=== PATIENT | male | born 1995 | race Caucasian/White ===

== ENCOUNTER 2021-03-30 16:12 | Inpatient (IN) | payer OTHER ==
[~2021-03-30] VITALS: Ht 185.4 cm; Wt 75.9 kg
[2021-03-30] VITALS (17 sets, daily range): BP systolic 117–147; BP diastolic 66–89
--- NOTE | 2021-03-30 17:01 | REP ---
INDICATION: DYSPNEA/COUGH. COMPARISON: None. TECHNIQUE: Portable FINDINGS: The technique utilized in obtaining the radiograph has magnified the cardiac silhouette and accentuated the interstitial markings. There is a moderate to large right-sided pneumothorax and a patchy right lung base opacity with costophrenic and cardiophrenic angle blunting. There is evidence of a possible mediastinal shift to the left, however, due to the opacity the right heart border is silhouetted out. The left lung is clear. The heart is not enlarged. The osseous structures are within normal limits. IMPRESSION: Right-sided pneumothorax and right lung base opacities atelectasis/pneumonia/effusion. If an effusion then hydropneumothorax. <Electronically signed by Bishop Nieves > 03/30/21 [id number]
[2021-03-30 17:15] LABS: BASO # 0.1 10^3/uL (0.0-0.2); BASO % 0.4 % (0.0-1.0); EOS % 0.2 % (0.0-3.0); HEMOGLOBIN 13.6 g/dl (13.5-17.5); LYMPH # 1.4 10^3/uL (1.5-5.0); MEAN CORPUSCULAR HEMOGLOBIN 30.4 pg (27.0-33.0); MEAN CORPUSCULAR VOLUME 89.5 fl (80.0-96.0); MONO # 0.9 10^3/uL (0.0-0.8); MONO % 6.8 % (2.0-8.0); NEUTROPHILS # 11.2 10^3/uL (1.5-8.5); NEUTROPHILS % 82.2 % (36.0-66.0); PLATELET COUNT, AUTOMATED 230 10^3/uL (150-450); RED BLOOD COUNT 4.47 10^6/uL (4.30-6.10); WHITE BLOOD COUNT 13.6 10^3/uL (4.0-10.0)
[2021-03-30] MEDS ORDERED: PERCOCET 5MG/325MG TAB PO PRN (17:30)
[2021-03-30] MEDS ORDERED: NORCO, ANEXSIA 5/325MG TABLET (HYDROcodone/ACETAMINOPHEN) PO PRN (17:30)
[2021-03-30] MEDS ORDERED: BISACODYL 10 MG SUPP PR PRN (17:30)
[2021-03-30] MEDS ORDERED: LEVALBUTEROL 1.25 MG/0.5 ML CONCENTRATE NEB NEB PRN (17:30)
[2021-03-30] MEDS ORDERED: ONDANSETRON 4MG/2ML VIAL IV PRN (17:30)
[2021-03-30] MEDS ORDERED: ACETAMINOPHEN TAB 650MG DOSE (2X325MG) PO PRN (17:30)
[2021-03-30 17:36] LABS: CK-MB VALUE MASS 3.6 NG/ML (<3.6); CPK CREATINE PHOSPHOKINASE 293 U/L (39-308); MB/CK RELATIVE INDEX 1.23 (< OR =4); TROPONIN I < 0.02 NG/ML (< 0.10)
[2021-03-30 17:43] LABS: ALBUMIN 4.1 GM/DL (3.2-5.2); ALT/SGPT 23 U/L (12-78); BILIRUBIN,DIRECT 0.2 MG/DL (0.0-0.2); BILIRUBIN,TOTAL 0.6 MG/DL (0.2-1.0); BLOOD UREA NITROGEN 13 MG/DL (7-18); CALCIUM LEVEL 9.2 MG/DL (8.5-10.1); CARBON DIOXIDE LEVEL 30 MEQ/L (21-32); CHLORIDE LEVEL 103 MEQ/L (98-107); CREATININE FOR GFR 0.87 MG/DL (0.70-1.30); GLOMERULAR FILTRATION RATE > 60.0 (>60); GLUCOSE, FASTING 97 MG/DL (70-100); NT-PRO BNP 36 PG/ML (<125); POTASSIUM SERUM 4.1 MEQ/L (3.5-5.1); SODIUM LEVEL 140 MEQ/L (136-145); TOTAL PROTEIN 6.8 GM/DL (6.4-8.2)
[2021-03-30] MEDS ORDERED: flumazeniL 0.5 MG/5 ML VIAL As Ordered ONE (17:59)
[2021-03-30] MEDS ORDERED: MIDAZOLAM INJ 2MG/2ML VIAL (J2250 PER 1MG) As Ordered ONE ×2 (17:59→18:00)
[2021-03-30] MEDS ORDERED: KCL 20MEQ IN D5/NS 1000ML 1,000 ML IV SCH (18:00)
[2021-03-30] MEDS ORDERED: LIDOCAINE 1% MDV 20ML VIAL As Ordered ONE (18:00)
--- NOTE | 2021-03-30 18:13 | HPEPDOC ---
[facility] Medical History & Physical Date of Admission Mar 30, 2021 Date of Service: Mar 30, 2021 History and Physical Chief complaint: Who presented to the ER with complaints of chest pain and syncope History of present illness: Patient is a 25-year-old male with no significant past medical history who presented to the ER after he has syncopized while at work. Patient reported that early this morning he was doing pull-ups, deadlifts, pushups and a 2 mile run and around 9 AM he began to experience right-sided chest pain. Patient reports that the pain at that point was a 5-6/10, sharp like nature. Patient reported that he is taking Tylenol with minimal relief movement did exacerbate the pain. Patient noted that by 3:30 PM his pain was 8-9/10 and patient had passed out. EMS was called and patient was brought to the ER for further evaluation. In the emergency room, patient had a chest x-ray completed which revealed evidence of a right-sided pneumothorax. Patient was admitted to the hospitalist service, and cardiothoracic surgery was called on consultation. Patient was seen and examined in the hospital bed. Patient denies any active nausea or vomiting. Currently denies any abdominal pain, constipation, diarrhea, or urinary discomfort. Denies any recent fevers or chills. Patient does report some shortness of breath with a mild nonproductive cough. Currently also pain is a 7/10. Past Medical History: No significant past medical history Past Surgical History: Removal of a cyst on his right chest wall approximately 4-5 years ago reported to be benign Varicose vein procedure in his left hip/groin Allergies: See below Medications: See below Family History: - Patient denies any significant medical problems of his mother or father. He denies any family history of autoimmune diseases Social History: - Denies the use of tobacco or illicit drugs; patient reports social use of alcohol, last use was about a week ago - Denies recent travel or sick contacts - Lives with roommate and barracks - Occupation; patient is a rn military Review of Systems: 10 point review of systems complete, all negative otherwise stated in HPI Physical exam: - Vitals: BP [141/73], HR [94], RR [18], Sat [100%RA], Temp [98.3F] - General: Lying in bed, Speaking in full sentences, AAOx3 - HEENT: NC, AT, PERRLA - CVS: RRR, +S1S2, - Murmurs / rubs / gallops - Lungs: Diminished lung sounds at right lung field faint crackles appreciated at right lung base. No wheezing appreciated - Abdomen: Soft, Non-distended, Non-tender - Extremities: No lower extremity edema, No calf tenderness - Neuro: No focal motor or sensory deficit - Skin: No visible rashes Labs: See below Imaging: CXR 03/30: Right-sided pneumothorax and right lung base opacities atelectasis/pneumoni a/effusion. If an effusion then hydropneumothorax. EKG: See below Assessment and Plan: R sided chest pain - likely 2/2 pneumothorax - Patient presented to the ER with right-sided chest pain - Currently patient is saturating well on room air - Imaging noted above with evidence of right-sided pneumothorax - Patient has been admitted to the PCU and will have cardiothoracic surgery evaluate and place chest tube - Patient will remain nothing by mouth at this point Syncope - likely 2/2 above - Is reported his pain was at the peak 8-01/21 - c/w Telemetry monitoring No significant past medical history DVT prophylaxis - Will start TEDs/Sequentials and Heparin SQ Vital Signs Vital Signs Date Time Temp Pulse Resp B/P (MAP) Pulse Ox O2 Delivery O2 Flow Rate FiO2 03/30/21 17:27 97 100 03/30/21 16:23 98.3 18 141/73 (95) Room Air Laboratory Data Labs 24H Laboratory Tests 2 03/30/21 16:51: Immature Granulocyte % (Auto) 0.4, Neutrophils (%) (Auto) 82.2H, Lymphocytes (%) (Auto) 10.0L, Monocytes (%) (Auto) 6.8, Eosinophils (%) (Auto) 0.2, Basophils (%) (Auto) 0.4, Neutrophils # (Auto) 11.2H, Lymphocytes # (Auto) 1.4L, Monocytes # (Auto) 0.9H, Eosinophils # (Auto) 0.0, Basophils # (Auto) 0.1, Nucleated Red Blood Cells % (auto) 0.0, Anion Gap 7L, Glomerular Filtration Rate > 60.0, Calcium Level 9.2, Total Bilirubin 0.6, Direct Bilirubin 0.2, Aspartate Amino Transf (AST/SGOT) 24, Alanine Aminotransferase (ALT/SGPT) 23, Alkaline Phosphatase 55, Total Creatine Kinase 293, Creatine Kinase MB 3.6, Creatine Kinase MB Relative Index 1.23, Troponin I < 0.02, QX-Pcv-C-Type Natriuretic Peptide 36, Total Protein 6.8, Albumin 4.1, Albumin/Globulin Ratio 1.5, Thyroid Stimulating Hormone (TSH) 1.080 03/30/21 17:07: CBC/BMP Laboratory Tests 03/30/21 16:51 Home Medications No Active Prescriptions or Reported Meds Allergies Coded Allergies: No Known Drug Allergies (Verified Allergy, Unknown, 03/30/21) GALA OSWALD MD Mar 30, 2021 18:13
[2021-03-30 18:17] LABS: RSV AMPLIFICATION NEGATIVE (NEGATIVE)
[2021-03-30] MEDS ORDERED: MIDAZOLAM INJ 2MG/2ML VIAL (J2250 PER 1MG) IV ONE ×3 (18:39→18:42)
[2021-03-30] MEDS ORDERED: LIDOCAINE 1% MDV 20ML VIAL SC ONE ×2 (18:42→18:44)
[2021-03-30] MEDS ORDERED: SODIUM CHLORIDE 0.9% 1000ML IV ONE ×2 (18:55→20:45)
[2021-03-30] MEDS ORDERED: NS 1,000 ML IV ONE (19:00)
[2021-03-30] MEDS: KETOROLAC 30 MG/ML 1ML VIAL IV SCH (19:44)
[2021-03-30] MEDS: LEVALBUTEROL 1.25 MG/0.5 ML CONCENTRATE NEB NEB SCH (20:17)
--- NOTE | 2021-03-30 20:46 | REPVR ---
PROCEDURE INFORMATION: Exam: CT Chest Without Contrast; Diagnostic Exam date and time: 03/30/2021 7:06 PM Age: 25 years old Clinical indication: Device placement; Chest tube; Additional info: Post chest tube TECHNIQUE: Imaging protocol: Diagnostic computed tomography of the chest without contrast. 3D rendering (Not supervised by radiologist): MIP and/or 3D reconstructed images were created by the technologist. Radiation optimization: All CT scans at this facility use at least one of these dose optimization techniques: automated exposure control; mA and/or kV adjustment per patient size (includes targeted exams where dose is matched to clinical indication); or iterative reconstruction. COMPARISON: CR PORTABLE CHEST X-RAY 03/30/2021 6:51 PM FINDINGS: Lungs: There is consolidation the right lower lobe which may be due to atelectasis associated with the effusion. Left lung is clear. Pleural spaces: There is a right hydropneumothorax. A chest tube has been placed through the anterior chest wall tip is at right lung apex. There is subcutaneous emphysema at site of chest tube insertion. Heart: Unremarkable. No cardiomegaly. No pericardial effusion. Aorta: Unremarkable. No aortic aneurysm. Lymph nodes: See "Soft tissues" finding. Bones/joints: Unremarkable. No acute fracture. Soft tissues: No obvious mediastinal or hilar lymphadenopathy although soft tissue assessment is limited on this noncontrast study. IMPRESSION: There is a right hydropneumothorax with right chest tube in place from an anterior approach tip at right lung apex. There is consolidation the right lower lobe which may be due to compressive atelectasis among other etiologies. Electronically signed by: Radha Soares On 03/30/2021 20:46:09 PM
[2021-03-30] MEDS: KCL 20MEQ IN D5/NS 1000ML 1,000 ML IV SCH (20:53)
[2021-03-30] MEDS ORDERED: HEPARIN SOD (PORCINE) 5000UNITS/ML 1ML VIAL/SYRINGE SC SCH (21:00)
[2021-03-30] MEDS: DOCUSATE SODIUM 100MG CAPSULE PO SCH (21:27)
[2021-03-31] VITALS (7 sets, daily range): BP systolic 113–138; BP diastolic 49–78
[2021-03-31] MEDS: KETOROLAC 30 MG/ML 1ML VIAL IV SCH ×4 (00:16→18:47)
[2021-03-31 00:19] LABS: HEMATOCRIT 32.7 % (42.0-52.0)
[2021-03-31] MEDS: LEVALBUTEROL 1.25 MG/0.5 ML CONCENTRATE NEB NEB SCH ×4 (02:15→19:32)
[2021-03-31] MEDS: PERCOCET 5MG/325MG TAB PO PRN ×2 (04:03→08:17)
[2021-03-31] MEDS: KCL 20MEQ IN D5/NS 1000ML 1,000 ML IV SCH (06:23)
--- NOTE | 2021-03-31 06:24 | RO ---
OPERATIVE NOTE DATE OF OPERATION: 03/30/2021 PREOPERATIVE DIAGNOSIS: Pneumothorax. POSTOPERATIVE DIAGNOSIS: Hemopneumothorax. PROCEDURE: Insertion of right anterior apical chest tube. SURGEON: TERESA OLIVO M.D. FINDINGS: Upon insertion of the chest tube and placing it to suction, the patient immediately drained 1500 ml of blood. It eventually slowed. A chest x-ray taken immediately after showed the chest tube to be in good place in a more lateral position and not within the mediastinum. CT scan was then obtained immediately which showed a thin crescent of retained blood at the costophrenic angle. DESCRIPTION OF PROCEDURE: Under satisfactory moderate sedation achieved with 6 mg of Versed, the patient was prepped and draped in the usual sterile fashion. The first intercostal space above the second rib was infiltrated with 1% Lidocaine including the skin, subcutaneous tissue, muscle and pleura. An incision was made and the tunnel was created in the chest without difficulty. A #20 chest tube was then placed without difficulty and aimed towards to the apex. The chest tube was secured to the chest wall with #2 Tevdek suture. It was then connected to the Pleur-Evac with a sudden egress of 1500 ml of blood. The patient was never hypotensive during the procedure The chest tube was milked and the drainage eventually stopped. The patient tolerated the procedure well and was immediately taken to the CT scan.
--- NOTE | 2021-03-31 06:51 | CR ---
CONSULTATION DATE: 03/30/2021 REASON FOR CONSULTATION: Patient is seen at the request of the Emergency Room for syncope and a pneumothorax. HISTORY OF PRESENT ILLNESS: The patient is a 25-year-old white male who is in the and who started his morning in his usual fashion. He took a physical training exam running 2 miles in the required time. Shortly thereafter he developed a sharp pain in his right upper chest. He sought medical attention at the post clinic who thought that he maybe had a "muscle strain" and discharged him. No chest x-ray was taken. He then reappeared about 4 hours later in the same clinic, this time complaining of shortness of breath with continued chest pain. In and around the same time in that visit he started to faint, have tunnel vision and blackout but did not actually hit the floor. At that point in time, it finally occurred to the post medical personnel to transfer him to this hospital. Again, a chest x-ray was not taken, however on a chest x-ray here he had a large right sided pneumothorax. About two weeks ago he states he had an upper respiratory tract infection which was accompanied by a cough and some white sputum production. He felt hot but there were no actual fever, chills or sweats and certainly no rigor. Until today, he managed to maintain his oral intake. He was a bit nauseous about two weeks ago during his URI. He has had no dysphagia and until today no shortness of breath. Upon taking history, he states that he is short of breath as he speaks to me. His chest pain is sharp and pleuritic in nature which is exacerbated by taking a deep breath at the peak of inspiration. It is confined to his right upper chest and back. PAST MEDICAL HISTORY: None. MEDICATIONS: None. ALLERGIES: None. PAST SURGICAL HISTORY: Either a varicocele or some type of varicose vein in his left groin about four years ago, cyst removal on his anterior chest over the sternum which has resulted in a very large keloid. EXPOSURES: No dogs, birds, or cats at home. [place]. 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 No asbestos exposure that he knows of. No exposures to tuberculosis. HABITS: Does not smoke and has never smoked. Drinks occasionally. No illicit drugs. TRAVEL HISTORY: He has been deployed to [place] and to [place]. He spent basic training in [place] but has not been to the [facility]. FAMILY HISTORY: No history of pectus excavatum in his family. REVIEW OF SYSTEMS: CONSTITUTIONAL: See HPI without fever, chills, sweats or night sweats, without weight loss. EYES: Without diplopia, amaurosis fugax or prior jaundice. NOSE: Without epistaxis. MOUTH: He has his own teeth. PULMONARY: See HPI. CARDIAC: He sometimes has palpitations but no history of myocardial infarctions or intermittent claudication or peripheral edema. No orthopnea or paroxysmal nocturnal dyspnea. GI: Without nausea, vomiting diarrhea, constipation, melena, hematochezia or hematemesis. No abdominal pain. : Without dysuria or hematuria, or history of renal stones. ENDOCRINE: Without diabetes, without thyroid disease. NEUROLOGIC: Without paresthesias or paralysis, gait changes or seizures. PSYCHIATRIC: Without pathological anxiety, depression, or psychoses. PHYSICAL EXAMINATION: VITAL SIGNS: Temperature is 98.3, heart rate is 94 and is sinus rhythm, respiratory rate of 18 without the use of accessory muscles, is 100% saturated on room air. His blood pressure is 141/73. HEENT: Head is normocephalic. Eyes: Pupils equal, round and reactive to light. Extraocular motions intact. Sclera nonicteric. Nose without deformity. Mouth shows the mucous membranes to be pink and moist. Lips and commissures without lesions, there is no thrush. He does not have a high hard palate. NECK: Supple. There is no jugular venous distention. No subcutaneous emphysema. Trachea is midline. There is no lymphadenopathy. He has 2+ carotid upstrokes and no bruits. There is no thyromegaly. LUNGS: Hyperresonant percussion note in the upper right chest. He has markedly decreased breath sounds on the right side. The left side shows normal vesicular sounds without wheezes, rhonchi or rales. CARDIAC: Without murmurs, clicks, gallops or rubs. I cannot feel his PMI. S1 and S2 are normal. He has a minimal pectus excavatum. ABDOMEN: Soft, nontender, bowel sounds are positive. There is no hepatomegaly. No CVA tenderness. EXTREMITIES: No pretibial edema. No calf tenderness. No differential swelling of the upper extremities. SKIN: Warm, dry and perfused without cyanosis or mottling including that of nailbeds and knees. LYMPHATICS: Lymphatics do not show any palpable cervical, subclavicular, supraclavicular or axillary lymphadenopathy. There is no epitrochlear lymphadenopathy. PULSES: Pulses shows 2+ dorsalis pedis pulses, 2+ carotid pulses and radial pulses. NEUROLOGIC: Cranial nerves II-XII are intact. Gross motor and gross sensation intact. Gait is not tested. PSYCHIATRIC: He is awake, alert and oriented x3 with appropriate mood and affect and conversational. LABORATORY DATA: His white count is 13.6 with a hemoglobin and hematocrit of 13.6 and 40% respectively. Platelet count is 230,000 and differential shows 82% neutrophils, 10% lymphocytes, and 6% monocytes. There are no immature forms or toxic granulations. Electrolytes are normal with a BUN and creatinine of 13 and 0.87, glucose of 97 and a calcium of 9.2 with a corresponding albumin of 4.1. TSH was 1.08 and within normal limits. AST and ALT are normal at 24 and 23 respectively. He is COVID negative. His chest x-ray done portably in the Emergency Room shows a 50 to 75% pneumothorax by volume with compression of vessels in the lower hemithorax and an obscured diaphragm with a meniscus laterally at the costophrenic angle. IMPRESSION: 1. Spontaneous pneumothorax. 2. Possible meniscus at the costophrenic angle. PLAN/DISCUSSION: He will be admitted and I will place a chest tube in the PCU. Will monitor him for an air leak. This is his first episode and therefore, if his air leak stops and his lung comes back to the chest wall he will not need surgical intervention at this point in time. I have told him that should this happen again or should he have a continuous air leak on this admission he would need a talc pleurodesis and a wedge resection of the upper lobe most likely. COLLINS
[2021-03-31 07:00] LABS: BASO % 0.3 % (0.0-1.0); EOS # 0.1 10^3/uL (0.0-0.5); HEMOGLOBIN 10.4 g/dl (13.5-17.5); LYMPH # 1.9 10^3/uL (1.5-5.0); LYMPH % 28.1 % (24.0-44.0); MEAN CORPUSCULAR HEMOGLOBIN 29.7 pg (27.0-33.0); MEAN CORPUSCULAR HGB CONC 32.5 g/dl (32.0-36.5); MEAN CORPUSCULAR VOLUME 91.4 fl (80.0-96.0); MONO # 0.7 10^3/uL (0.0-0.8); MONO % 10.3 % (2.0-8.0); NEUTROPHILS # 4.1 10^3/uL (1.5-8.5); NEUTROPHILS % 60.2 % (36.0-66.0); PLATELET COUNT, AUTOMATED 171 10^3/uL (150-450); WHITE BLOOD COUNT 6.8 10^3/uL (4.0-10.0)
[2021-03-31 07:28] LABS: BLOOD UREA NITROGEN 11 MG/DL (7-18); CALCIUM LEVEL 8.2 MG/DL (8.5-10.1); CARBON DIOXIDE LEVEL 30 MEQ/L (21-32); CHLORIDE LEVEL 106 MEQ/L (98-107); CREATININE FOR GFR 0.81 MG/DL (0.70-1.30); GLOMERULAR FILTRATION RATE > 60.0 (>60); GLUCOSE, FASTING 98 MG/DL (70-100); MAGNESIUM LEVEL 2.2 MG/DL (1.8-2.4); POTASSIUM SERUM 4.3 MEQ/L (3.5-5.1); SODIUM LEVEL 140 MEQ/L (136-145)
--- NOTE | 2021-03-31 09:02 | REP ---
INDICATION: after chest tube placed COMPARISON: 03/30/2021 at 6:53 p.m. TECHNIQUE: PA and lateral. FINDINGS: Stable chest tube extends to the right apex and no obvious residual pneumothorax is identified. Right lower lobe opacity and small amount of pleural fluid are considerably improved as compared with prior examination. No new acute process appreciated. IMPRESSION: 1. No obvious right pneumothorax. 2. Right lower lobe airspace disease and small pleural fluid improved from prior examination. 3. No new acute process. <Electronically signed by Tyrell Gutierrez > 03/31/21 [id number]
[2021-03-31] MEDS ORDERED: NS 1,000 ML IV ONE (09:25)
[2021-03-31 09:26] LABS: HEMATOCRIT 32.1 % (42.0-52.0); HEMOGLOBIN 10.7 g/dl (13.5-17.5)
[2021-03-31 09:57] LABS: CK-MB VALUE MASS 5.9 NG/ML (<3.6); CPK CREATINE PHOSPHOKINASE 289 U/L (39-308); MB/CK RELATIVE INDEX 2.04 (< OR =4); TROPONIN I < 0.02 NG/ML (< 0.10)
[2021-03-31] MEDS: DOCUSATE SODIUM 100MG CAPSULE PO SCH ×2 (10:19→21:17)
[2021-03-31] MEDS: PANTOPRAZOLE 40MG TAB (PROTONIX) PO SCH (10:19)
[2021-03-31] MEDS: MOM 30ML SUSPENSION UDC PO SCH (10:20)
--- NOTE | 2021-03-31 10:31 | IPNPDOC ---
Text Note Date of Service The patient was seen on 03/31/21. NOTE Subjective: Patient is a 25-year-old male with no significant PMHx who presented to the ER after he has passed out while at work. To emergency room, patient was noted to have a large right-sided pneumothorax. He was admitted to hospital service for further evaluation and treatment. Cardiac thoracic surgery was called on consultation and a chest tube was placed. Of note, there was a significant amount of blood was draining through the chest tube. Patient was seen and examined at the bedside. Patient reported that his breathing was doing better reported some discomfort around the incision site. Denied any nausea, vomiting, abdominal pain, diarrhea, or urinary discomfort. Later this morning, patient had a chest x-ray completed and was ambulating, not more than 60 feet before he began to experience lightheadedness, dizziness, sweating and had passed out. Patient was caught by nursing staff and brought back up to the floor. Objective: Vitals (See below) General: Lying in bed, appeared comfortable, AAOx3 HEENT: NC, AT CVS: +S1S2 Lungs: Improved aeration bilaterally without any significant crackles, wheezing or rhonchi Abdomen: Soft, ND, NT Extremities: - Edema, - Calf tenderness Imaging: CXR 03/30: Right-sided pneumothorax and right lung base opacities atelectasis/pn eumonia/effusion. If an effusion then hydropneumothorax. CXR 03/30: There is a right hydropneumothorax with right chest tube in place from an anterior approach tip at right lung apex. There is consolidation the right lower lobe which may be due to compressive atelectasis among other etiologies. CXR 03/31: 1. No obvious right pneumothorax. 2. Right lower lobe airspace disease and small pleural fluid improved from prior examination. 3. No new acute process. Assessment and plan: R sided chest pain - likely 2/2 pneumothorax - Patient presented to the ER with right-sided chest pain - This morning, patient denied any significant chest pain or shortness of breath - Imaging noted above - s/p Chest tube placement on 03/[address] Abbott - c/w pain control Syncope - likely 2/2 orthostatic hypotension - likely 2/2 volume loss - Upon ambulation later this morning patient had passed out - Was noted to be significantly tachycardic upon ambulation - c/w Telemetry monitoring - c/w IV fluid hydration - Anticipate the patient will likely need to be transfused on repeat H&H Normocytic anemia / Acute blood loss anemia - Hg has trended down since admission - Will follow H&H trend - Patient has consented for blood / Type and Screen - Will transfuse if symptoms persist s/p Leukocytosis - likely 2/2 reactive etiology - No evidence of infection at this point - Will hold off antibiotics DVT prophylaxis - Discontinued Heparin - c/w TEDs/Sequentials VS,Fishbone, I+O VS, Fishbone, I+O Laboratory Tests 03/30/21 16:51 03/31/21 00:04 03/31/21 06:30 03/31/21 09:11 Vital Signs Date Time Temp Pulse Resp B/P (MAP) Pulse Ox O2 Delivery O2 Flow Rate FiO2 03/31/21 08:17 18 Room Air 03/31/21 08:00 98.2 100 138/78 (98) 100 03/31/21 00:00 2.0 I&O- Last 24 Hours up to 6 AM 03/31/21 06:00 Intake Total 1475 ml Output Total 2350 ml Balance -875 ml GALA OSWALD MD Mar 31, 2021 10:31
--- NOTE | 2021-03-31 11:46 | IPN ---
PROGRESS NOTE DATE: 03/31/2021 SUBJECTIVE: Mr. Lauren has had a stable 15 hours since placing his chest tube with 1500 ml of blood eluding from it. His H and H have been stable overnight. He was taken down to x-ray today and had a fainting spell. His vital signs shows a T-max of 98.6 with a heart rate that ranges between 73 and 102 and is sinus rhythm, respiratory rate of 15 to 20 without the use of accessory muscles. He is 100% saturated on room air. His blood pressure is ranging between 121/66 to 138/78. His intake and output over the past 24 hours has been recorded as 1475 in and 1900 out for negativity of 425 ml. He has put out 1500 from the chest tube and 450 ml of urine. Weight today is 78 kilos which is the same as yesterday. OBJECTIVE: His lungs normal vesicular sounds on either side. Percussion note is full to the diaphragm. Cardiac exam is without murmurs, clicks, gallops or rubs. I cannot feel his PMI. S1 and S2 are normal. Abdomen is soft and nontender. Bowel sounds are positive. There is no hepatomegaly. No CVA tenderness. Extremities show no pretibial edema. No calf tenderness. No differential swelling of the upper extremities. Skin is warm, dry and perfused without cyanosis or mottling including that of nailbeds and knees. Neck is supple. There is no jugular venous distention. No subcutaneous emphysema. Trachea is midline. Mouth shows the mucous membranes to be pink and moist. Lips and commissures without lesions, no thrush. Eyes shows his pupils equal and reactive. Extraocular muscles are intact. Sclera nonicteric. Neurologic: Cranial nerves II-XII are intact. Normal gross motor, gross sensation intact. Gait is not tested. Psychiatric shows him to be awake, alert and oriented x3 with appropriate mood and affect and conversational. His white count today is 6.8 with a hemoglobin and hematocrit of 10.4 and 32.0, which is unchanged from 11 and 32.7 at midnight and 10.7 and 32.1 at 9 o'clock this morning. Chemistries today shows normal electrolytes with a BUN and creatinine of 11 and 0.81, glucose of 98, calcium of 8.2, and magnesium of 2.2. His chest x-ray today shows his lung fully expanded to the chest wall. Chest tube is in excellent position at the cupola. There is almost a trivial blunting of the right costophrenic angle which is best seen on the lateral film. There are no infiltrates. IMPRESSION: 1. Spontaneous pneumothorax. 2. Hemothorax. 3. Probable torn adhesions. PLAN/DISCUSSION: I suspect what happened yesterday was that he ruptured a small bleb which was adherent to the chest wall with a vascularized adhesion and when that broke it bleed over the course of the day. He has now been evacuated. He did have a bit of a fainting spell today at x-ray. His I and O's are just about even and I suspect he is still hypovolemic and I will administer a bolus of 1000 ml of normal saline. I will recheck a H and H later today with the expectation that he will have a hemoglobin and hematocrit that drops secondary to hemodilution. I still do not expect to have to transfuse him although that is always a possibility if his H and H migrates down to 7 and 21. I will not start him on iron. Will keep his chest tube in another few days. Review of his CT yesterday in addition to the placement of his chest tube shows multiple blebs in both the right and left sides. These are at the cupola and is best seen on the transverse sections and the sagittal reconstructions. I noted yesterday that this was his first spontaneous pneumothorax and surgical intervention is not warranted at this time unless he has a continued air leak which he does not have now.
[2021-03-31 18:04] LABS: HEMATOCRIT 30.6 % (42.0-52.0); HEMOGLOBIN 10.1 g/dl (13.5-17.5)
[2021-04-01] VITALS (7 sets, daily range): BP systolic 122–140; BP diastolic 60–78
[2021-04-01] MEDS: LEVALBUTEROL 1.25 MG/0.5 ML CONCENTRATE NEB NEB SCH ×4 (01:04→20:27)
[2021-04-01] MEDS: KETOROLAC 30 MG/ML 1ML VIAL IV SCH ×4 (01:48→19:12)
[2021-04-01 06:28] LABS: BASO % 0.6 % (0.0-1.0); EOS # 0.1 10^3/uL (0.0-0.5); EOS % 1.8 % (0.0-3.0); HEMATOCRIT 29.8 % (42.0-52.0); LYMPH % 29.8 % (24.0-44.0); MEAN CORPUSCULAR HEMOGLOBIN 30.6 pg (27.0-33.0); MEAN CORPUSCULAR HGB CONC 33.6 g/dl (32.0-36.5); MEAN CORPUSCULAR VOLUME 91.1 fl (80.0-96.0); MONO # 0.6 10^3/uL (0.0-0.8); MONO % 9.4 % (2.0-8.0); NEUTROPHILS # 3.8 10^3/uL (1.5-8.5); NEUTROPHILS % 58.2 % (36.0-66.0); PLATELET COUNT, AUTOMATED 156 10^3/uL (150-450); RED BLOOD COUNT 3.27 10^6/uL (4.30-6.10); WHITE BLOOD COUNT 6.6 10^3/uL (4.0-10.0)
[2021-04-01 06:54] LABS: BLOOD UREA NITROGEN 9 MG/DL (7-18); CALCIUM LEVEL 8.6 MG/DL (8.5-10.1); CARBON DIOXIDE LEVEL 28 MEQ/L (21-32); CHLORIDE LEVEL 107 MEQ/L (98-107); CREATININE FOR GFR 0.86 MG/DL (0.70-1.30); GLOMERULAR FILTRATION RATE > 60.0 (>60); GLUCOSE, FASTING 87 MG/DL (70-100); MAGNESIUM LEVEL 2.2 MG/DL (1.8-2.4); POTASSIUM SERUM 4.5 MEQ/L (3.5-5.1); SODIUM LEVEL 141 MEQ/L (136-145)
--- NOTE | 2021-04-01 09:56 | REP ---
INDICATION: after chest tube placed COMPARISON: 03/30/2021 TECHNIQUE: PA and lateral. FINDINGS: Right apical chest tube with small amount of residual pleural fluid at the right base and no obvious residual pneumothorax identified. Lung vargas are otherwise clear. No new acute process appreciated. Mediastinum and cardiac silhouette are stable/normal. IMPRESSION: Right apical chest tube with small amount of residual basilar pleural fluid. No residual pneumothorax. <Electronically signed by Tyrell Gutierrez > 04/01/21 [id number]
[2021-04-01] MEDS: FERROUS SULFATE 325MG TAB PO SCH (10:08)
[2021-04-01] MEDS: PANTOPRAZOLE 40MG TAB (PROTONIX) PO SCH (10:08)
[2021-04-01] MEDS: MOM 30ML SUSPENSION UDC PO SCH (10:08)
[2021-04-01] MEDS: DOCUSATE SODIUM 100MG CAPSULE PO SCH ×2 (10:08→21:28)
--- NOTE | 2021-04-01 11:52 | IPN ---
PROGRESS NOTE DATE: 04/01/2021 SUBJECTIVE: Mr. Lauren has had a stable 24 hours. He is not complaining of any dizziness or lightheadedness. He was given an extra 1000 ml bolus of fluid yesterday and still is on an IV continuing at 100 ml an hour. His vital signs shows a T-max of 99.0, with a heart rate that ranges between 88 and 118 and is sinus rhythm, respiratory rate of 17 to 18 without the use of accessory muscles who is 98% saturated on room air and his blood pressure has ranged between 122/60 to 137/71. His intake and output over the past 24 hours has been recorded as 4000 in and 1650 out for a positivity of 2400 ml. His urine output has been 1650 ml and there has been nothing out the chest tube. Weight is pending today. OBJECTIVE: On physical examination today, he has normal vesicular sounds on either side which are also equal. Percussion note is full to the diaphragm. Cardiac exam is without murmurs, clicks, gallops or rubs. I cannot feel his PMI. S1 and S2 are normal. Abdomen is soft and nontender. Bowel sounds are positive. There is no hepatomegaly. No CVA tenderness. Extremities show no pretibial edema. No calf tenderness. No differential swelling of the upper extremities. Skin is warm and dry and perfused without cyanosis or mottling including that of nailbeds and knees. Neck is supple. There is no jugular venous distention. No subcutaneous emphysema. Trachea is midline. Mouth shows the mucous membranes to be pink and moist. Lips and commissures without lesions. No thrush. Eyes shows the pupils equal and reactive. Extraocular muscles intact. Sclerae are nonicteric. Neurologic: Cranial nerves II-XII intact. Normal gross motor, gross sensation intact. Gait is also intact. Psychiatric shows him to be awake, alert and oriented x3 with appropriate mood and affect and conversational. LABORATORY DATA: His hemoglobin and hematocrit are 10.0 and 29.8 after volume resuscitation down from an admission H and H of 13.6 and 40.0. White count is 6.6 with a platelet count of 156,000. It is a normal differential. Electrolytes are normal with a BUN and creatinine of 9 and 0.85, glucose of 87 and calcium of 8.6 with a magnesium of 2.2. His chest x-ray is still pending and being taken as I dictate. I will review in a couple of minutes. IMPRESSION: 1. Spontaneous pneumothorax. 2. Hemothorax. 3. Probable vascularized adhesion caused from the hemothorax. PLAN/DISCUSSION: If his chest x-ray is all right today I will discontinue the suction. I think that we have successfully hydrated him as he is not at all symptomatic. We will see how he does down in x-ray. If the lung is applied to the chest wall I will discontinue suction. For some reason he has been placed on bed rest and I have asked that he now have full activity and be able to walk around. He put out an initial 1500 ml in blood from the chest tube which is now completely stopped. His H and H drop is secondary to hemodilution from resuscitation and from his hemorrhage. He will not need transfusion at this point in time.
--- NOTE | 2021-04-01 12:15 | IPNPDOC ---
Text Note Date of Service The patient was seen on 04/01/21. NOTE Subjective: Patient is a 25-year-old male with no significant PMHx who presented to the ER after he has passed out while at work. To emergency room, patient was noted to have a large right-sided pneumothorax. He was admitted to hospital service for further evaluation and treatment. Cardiac thoracic surgery was called on consultation and a chest tube was placed. Of note, there was a significant amount of blood was draining through the chest tube. Patient was seen and examined at the bedside. Currently patient reports an uneventful evening denies any significant chest pain or cough. Reports that his breathing is doing relatively fine. Denies any nausea, vomiting, abdominal pain, diarrhea, or urinary discomfort. Patient has remained in bed overnight since his syncopal episode last morning. Orthostatic vital signs completed this morning do not reveal any evidence of positivity; we can begin activity with assistance and physical therapy given his recent syncopal episode yesterday morning. Objective: Vitals (See below) General: Patient is sitting upright in bed, appears to be comfortable without any acute distress, is awake, alert, oriented 3 HEENT: Atraumatic and normocephalic CVS: +S1S2, Chest tube in place Lungs: Aeration bilaterally has improved significantly. No evidence of crackles, wheezing or rhonchi, Abdomen: Soft, nondistended and nontender Extremities: Lower extremity is do not reveal any evidence of edema Imaging: CXR 03/30: Right-sided pneumothorax and right lung base opacities atelectasis/pneumonia/effusion. If an effusion then hydropneumothorax. CXR 03/30: There is a right hydropneumothorax with right chest tube in place from an anterior approach tip at right lung apex. There is consolidation the right lower lobe which may be due to compressive atelectasis among other etiologies. CXR 03/31: 1. No obvious right pneumothorax. 2. Right lower lobe airspace disease and small pleural fluid improved from prior examination. 3. No new acute process. CXR 04/01: Right apical chest tube with small amount of residual basilar pleural fluid. No residual pneumothorax. Assessment and plan: s/p R sided chest pain - likely 2/2 pneumothorax - Patient presented to the ER with right-sided chest pain - Patient reports resolution of his chest pain and denies any significant shortness of breath this morning - Imaging noted above - s/p Chest tube placement on 03/[address] Abbott - c/w pain control Hemothorax - possibly 2/2 vascularized adhesion - s/p Removal of 1.5 L of blood - Output from chest tube has essentially stopped s/p Syncope - likely 2/2 orthostatic hypotension - likely 2/2 volume loss - Yesterday morning, 03/31; patient had a syncopal episode and was noted to be significantly tachycardic upon ambulation - Orthostatic vital signs completed this morning have been negative - H&H stable - c/w Telemetry monitoring - s/p IV fluid hydration - Will have PT work with patient today Normocytic anemia / Acute blood loss anemia - Hg has trended down since admission, but remains stable - Patient has consented for blood / Type and Screen - No indications for transfusion at this point s/p Leukocytosis - likely 2/2 reactive etiology - No evidence of infection at this point - Will continue to hold off on antibiotics DVT prophylaxis - s/p Heparin - c/w TEDs/Sequentials Disposition: - Anticipate discharge within the next 48 hours VSLynn, I+O VSLynn I+O Laboratory Tests 03/31/21 17:42 04/01/21 06:07 Vital Signs Date Time Temp Pulse Resp B/P (MAP) Pulse Ox O2 Delivery O2 Flow Rate FiO2 04/01/21 08:00 98.2 101 19 124/65 (84) 98 Room Air 03/31/21 09:00 2.0 I&O- Last 24 Hours up to 6 AM 04/01/21 06:00 Intake Total 4050 ml Output Total 1200 ml Balance 2850 ml GALA OSWALD MD Apr 01, 2021 12:15
[2021-04-02 00:30] VITALS: BP 118/67
[2021-04-02] MEDS: KETOROLAC 30 MG/ML 1ML VIAL IV SCH ×2 (01:45→06:57)
[2021-04-02] MEDS: LEVALBUTEROL 1.25 MG/0.5 ML CONCENTRATE NEB NEB SCH ×4 (02:00→19:22)
[2021-04-02 04:00] VITALS: BP 116/66
[2021-04-02 05:28] LABS: BASO % 0.7 % (0.0-1.0); EOS # 0.2 10^3/uL (0.0-0.5); EOS % 3.6 % (0.0-3.0); HEMATOCRIT 29.9 % (42.0-52.0); HEMOGLOBIN 9.9 g/dl (13.5-17.5); MEAN CORPUSCULAR HEMOGLOBIN 30.2 pg (27.0-33.0); MEAN CORPUSCULAR HGB CONC 33.1 g/dl (32.0-36.5); MEAN CORPUSCULAR VOLUME 91.2 fl (80.0-96.0); MONO # 0.7 10^3/uL (0.0-0.8); MONO % 11.3 % (2.0-8.0); NEUTROPHILS # 2.8 10^3/uL (1.5-8.5); NEUTROPHILS % 49.1 % (36.0-66.0); PLATELET COUNT, AUTOMATED 176 10^3/uL (150-450); RED BLOOD COUNT 3.28 10^6/uL (4.30-6.10); WHITE BLOOD COUNT 5.8 10^3/uL (4.0-10.0)
[2021-04-02 05:58] LABS: BLOOD UREA NITROGEN 11 MG/DL (7-18); CARBON DIOXIDE LEVEL 30 MEQ/L (21-32); CHLORIDE LEVEL 107 MEQ/L (98-107); CREATININE FOR GFR 0.88 MG/DL (0.70-1.30); GLOMERULAR FILTRATION RATE > 60.0 (>60); GLUCOSE, FASTING 88 MG/DL (70-100); MAGNESIUM LEVEL 2.2 MG/DL (1.8-2.4); POTASSIUM SERUM 4.4 MEQ/L (3.5-5.1); SODIUM LEVEL 140 MEQ/L (136-145)
[2021-04-02 07:39] VITALS: BP 134/70
--- NOTE | 2021-04-02 07:40 | ECGEPIP ---
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
--- NOTE | 2021-04-02 08:18 | REP ---
INDICATION: after chest tube placed COMPARISON: 04/01/2021 TECHNIQUE: PA and lateral. FINDINGS: Chest tube extends to the right apex without evidence for pneumothorax. Small amount of residual fluid at the right base appears slightly decreased from prior examination. No new acute pulmonary parenchymal process. Mediastinum and cardiac silhouette are normal. Skeletal structures are intact. IMPRESSION: 1. Small amount of residual pleural fluid at the right base decreased. 2. No pneumothorax. <Electronically signed by Tyrell Gutierrez > 04/02/21 0828
[2021-04-02] MEDS: MOM 30ML SUSPENSION UDC PO SCH (09:00)
[2021-04-02] MEDS: DOCUSATE SODIUM 100MG CAPSULE PO SCH ×2 (09:00→21:00)
--- NOTE | 2021-04-02 10:00 | IPNPDOC ---
Text Note Date of Service The patient was seen on 04/02/21. NOTE Subjective: Patient is a 25-year-old male with no significant PMHx who presented to the ER after he has passed out while at work. To emergency room, patient was noted to have a large right-sided pneumothorax. He was admitted to hospital service for further evaluation and treatment. Cardiac thoracic surgery was called on consultation and a chest tube was placed. Of note, there was a significant amount of blood was draining through the chest tube. Patient was seen and examined at the bedside. Patient is reported an uneventful evening. He denies any nausea, vomiting, chest pain, shortness breath or palpitations. He denies any significant cough. Denies any significant abdominal discomfort did report a bowel movement earlier today with dark/green colored stool. Denies any urinary discomfort. Yesterday he did work with physical therapy and was cleared for discharge from their perspective. Objective: Vitals (See below) General: Again, patient is sitting up in bed, appears to be comfortable without any acute distress, awake, alert, oriented 3 HEENT: NC and AT CVS: +S1S2, R sided Chest tube in place Lungs: Aeration has improved bilaterally. No evidence of crackles, wheezing or rhonchi Abdomen: Abdomen remains soft without any distention or tenderness Extremities: No edema Imaging: CXR 03/30: Right-sided pneumothorax and right lung base opacities atelectasis/pneumonia/ effusion. If an effusion then hydropneumothorax. CXR 03/30: There is a right hydropneumothorax with right chest tube in place from an anterior approach tip at right lung apex. There is consolidation the right lower lobe which may be due to compressive atelectasis among other etiologies. CXR 03/31: 1. No obvious right pneumothorax. 2. Right lower lobe airspace disease and small pleural fluid improved from prior examination. 3. No new acute process. CXR 04/01: Right apical chest tube with small amount of residual basilar pleural fluid. No residual pneumothorax. Assessment and plan: s/p R sided chest pain - likely 2/2 pneumothorax - Patient presented to the ER with right-sided chest pain on 03/30 - No reports of chest pain, shortness breath or cough this morning - Imaging noted above - s/p Chest tube placement on 03/[address] Scar Mauro c/w Pain control - Cardiothoracic surgery on consultation; potential removal for chest tube today s/p Hemothorax - possibly 2/2 vascularized adhesion - s/p Removal of 1.5 L of blood - Minimal to no output from chest tube noted over last 24 hours s/p Syncope - likely 2/2 orthostatic hypotension - likely 2/2 volume loss - On 03/31 patient had a syncopal episode and was noted to be significantly tachycardic upon ambulation - Orthostatic vital signs are negative - H&H stable - c/w Telemetry monitoring - s/p IV fluid hydration - Cleared PT Normocytic anemia / Acute blood loss anemia - Hg has trended down since admission, but remains stable - Patient has reported dark/green colored stool this morning, however was also started on iron yesterday - Will repeat H&H once more this evening - No indications for transfusion at this point - c/w Protonix; Will DC Ketorolac - c/w Ferrous sulfate s/p Leukocytosis - likely 2/2 reactive etiology - No evidence of infection at this point - Will continue to hold off on antibiotics DVT prophylaxis - s/p Heparin - c/w TEDs/Sequentials Disposition: - Anticipate discharge within the next 24 hours VS,Atulbone, I+O VS, Fishbone, I+O Laboratory Tests 04/02/21 04:49 Vital Signs Date Time Temp Pulse Resp B/P (MAP) Pulse Ox O2 Delivery O2 Flow Rate FiO2 04/02/21 07:39 98.3 64 18 134/70 (91) 100 Room Air 03/31/21 09:00 2.0 I&O- Last 24 Hours up to 6 AM 04/02/21 06:00 Intake Total 1620 ml Output Total 960 ml Balance 660 ml GALA OSWALD MD Apr 02, 2021 10:00
[2021-04-02] MEDS: PANTOPRAZOLE 40MG TAB (PROTONIX) PO SCH (10:11)
[2021-04-02] MEDS: FERROUS SULFATE 325MG TAB PO SCH (10:11)
[2021-04-02 12:00] VITALS: BP 149/83
[2021-04-02 16:00] VITALS: BP 118/64
[2021-04-02 18:42] LABS: HEMATOCRIT 32.2 % (42.0-52.0); HEMOGLOBIN 10.7 g/dl (13.5-17.5)
[2021-04-02 20:00] VITALS: BP 132/67
[2021-04-03] VITALS: BP 123/65
[2021-04-03] MEDS: LEVALBUTEROL 1.25 MG/0.5 ML CONCENTRATE NEB NEB SCH ×2 (01:02→08:10)
[2021-04-03 05:00] VITALS: BP 129/69
[2021-04-03 05:42] LABS: BASO # 0.1 10^3/uL (0.0-0.2); BASO % 0.8 % (0.0-1.0); EOS # 0.2 10^3/uL (0.0-0.5); EOS % 3.6 % (0.0-3.0); HEMATOCRIT 29.8 % (42.0-52.0); HEMOGLOBIN 9.9 g/dl (13.5-17.5); LYMPH # 1.5 10^3/uL (1.5-5.0); LYMPH % 24.2 % (24.0-44.0); MEAN CORPUSCULAR HEMOGLOBIN 30.3 pg (27.0-33.0); MEAN CORPUSCULAR HGB CONC 33.2 g/dl (32.0-36.5); MEAN CORPUSCULAR VOLUME 91.1 fl (80.0-96.0); MONO # 0.6 10^3/uL (0.0-0.8); MONO % 10.1 % (2.0-8.0); NEUTROPHILS # 3.9 10^3/uL (1.5-8.5); PLATELET COUNT, AUTOMATED 212 10^3/uL (150-450); RED BLOOD COUNT 3.27 10^6/uL (4.30-6.10); WHITE BLOOD COUNT 6.3 10^3/uL (4.0-10.0)
[2021-04-03 06:13] LABS: BLOOD UREA NITROGEN 13 MG/DL (7-18); CALCIUM LEVEL 8.7 MG/DL (8.5-10.1); CARBON DIOXIDE LEVEL 30 MEQ/L (21-32); CHLORIDE LEVEL 107 MEQ/L (98-107); CREATININE FOR GFR 0.87 MG/DL (0.70-1.30); GLOMERULAR FILTRATION RATE > 60.0 (>60); GLUCOSE, FASTING 86 MG/DL (70-100); MAGNESIUM LEVEL 1.9 MG/DL (1.8-2.4); POTASSIUM SERUM 4.3 MEQ/L (3.5-5.1); SODIUM LEVEL 143 MEQ/L (136-145)
[2021-04-03 07:52] VITALS: BP 132/73
--- NOTE | 2021-04-03 08:06 | REP ---
INDICATION: after chest tube placed COMPARISON: 04/02/2021 TECHNIQUE: PA and lateral. FINDINGS: Right apical chest tube has been removed and there is a small right apical pneumothorax now identified of approximately 5-10%. Small amount of atelectasis along the medial aspect of the right base cannot be excluded. Mediastinum and cardiac silhouette are normal. Remainder of lung vargas are well aerated and clear. No effusion. Skeletal structures intact. IMPRESSION: 1. Right chest tube removal with subsequent small right apical pneumothorax. <Electronically signed by Tyrell Gutierrez > 04/03/21 0802
[2021-04-03] MEDS ORDERED: FERR1TAB8 PO (08:28)
--- NOTE | 2021-04-03 08:30 | IPN ---
PROGRESS NOTE DATE: 04/02/2021 SUBJECTIVE: Mr. Lauren has had an uneventful 24 hours. He is breathing well and his pain is being well-controlled with chest tube insertion site. His vital signs shows a T-max of 98.3 with a heart rate that ranges between 58 and 68 and sinus rhythm, respiratory rate is constant at 18, who is 99 to 100% saturated on room air and his blood pressure is ranging between 134/70 to 116/66. His intake and output over the past 24 hours has been recorded as 1380 in and 960 out for a positivity of 420 ml. He has put out 10 ml out the chest tube and there is no air leak. He weighs 75.9 kilos today compared to 78 kilos two days ago. OBJECTIVE: On physical examination, he has equal breath sounds on either side with normal vesicular sounds without wheezes, rhonchi or rales. Percussion note is full to the diaphragm. Cardiac exam is without murmurs, clicks, gallops or rubs. I cannot feel his PMI. S1 and S2 are normal. Abdomen is soft and nontender. Bowel sounds are positive. There is no hepatomegaly. No CVA tenderness. Extremities show no pretibial edema. No calf tenderness. No differential swelling of the upper extremities. Skin is warm and dry and perfused without cyanosis or mottling including that of nailbeds and knees. Neck is supple. There is no jugular venous distention. No subcutaneous emphysema. Trachea is midline. Mouth shows the mucous membranes to be pink and moist. Lips and commissures without lesions. No thrush. Eyes shows the pupils equal and reactive. Extraocular muscles intact. Sclerae are nonicteric. Neurologic: Cranial nerves II-XII intact. Normal gross motor, gross sensation intact. Gait is also intact. Psychiatric shows him to be awake, alert and oriented x3 with appropriate mood and affect and conversational. LABORATORY DATA: His white count today is 5.8 with a hemoglobin and hematocrit of 9.9 and 29.9, unchanged from yesterday with a platelet count of 176,000. Differential shows 49% neutrophils, 35% lymphocytes and 11% monocytes. There are no immature forms or toxic granulations. His electrolytes are normal with a BUN and creatinine of 11 and 0.88, a glucose of 99 and a calcium of 2.2. His chest x-ray shows his lung fully expanded to the chest wall. Costophrenic angles are sharp and there are no infiltrates. Lateral film did not show any posterior infiltrates. Chest tube is excellent position at the apex. IMPRESSION: 1. Pneumohemothorax. 2. Distal emphysematous bleb disease. 3. Probable vascularized adhesion causing the hemothorax. PLAN/DISCUSSION: I will remove his chest tube today and plan for discharge in the morning.
[2021-04-03] MEDS: MOM 30ML SUSPENSION UDC PO SCH (09:00)
[2021-04-03] MEDS: DOCUSATE SODIUM 100MG CAPSULE PO SCH (09:00)
[2021-04-03] MEDS: FERROUS SULFATE 325MG TAB PO SCH (09:39)
[2021-04-03] MEDS: PANTOPRAZOLE 40MG TAB (PROTONIX) PO SCH (09:39)
--- NOTE | 2021-04-03 11:19 | IPN ---
PROGRESS NOTE DATE: 04/03/2021 SUBJECTIVE: Mr. Lauren has been doing quite well over the last 24 hours. He is walking the halls extensively. He has very little pain and has no shortness of breath. OBJECTIVE: VITAL SIGNS: Show T-max of 98.7 with a heart rate that ranges between 76 and 87 in a sinus rhythm. Respiratory rate is constant 18 who is 99% to 100% saturated on room air. His blood pressure is ranging between 132/73 to 123/65. INTAKE AND OUTPUT: Over the past 24 hours has been recorded as 1320 in and nothing out. I suspect the Is and Os are spurious. There is no weight on him today. RESPIRATORY: He has equal breath sounds on either side with a percussion note that is full to the diaphragmatic. There are no wheezes, rhonchi, or rales. CARDIAC: Without murmurs, clicks, gallops, or rubs. I cannot feel his PMI. S1 and S2 are normal. ABDOMEN: Soft and nontender. Bowel sounds are positive. There is no hepatomegaly. No CVA tenderness. EXTREMITIES: Show no pretibial edema. No calf tenderness. No differential swelling of the upper extremities. SKIN: Warm, dry, and perfused without cyanosis or mottling, including that of the nail beds and knees. NECK: Supple. There is no jugular venous distention. No subcutaneous emphysema. Trachea is midline. MOUTH: Shows the mucous membranes to be pink and moist. Lips and commisures are without lesions and no thrush. EYES: Show his pupils equal and reactive. Extraocular muscles are intact. Sclerae nonicteric. NEUROLOGIC: Shows II through XII intact. Normal gross motor, gross sensation intact. Gait is not tested. PSYCHIATRIC: Shows him to be awake, alert, and oriented x3 with appropriate mood and affect and conversational. LABORATORY DATA: His white count today is 6.3 with hemoglobin and hematocrit of 9.9 and 29.8 unchanged from yesterday. Platelet count is 212,000 and he essentially has a normal differential. Electrolytes are normal with a BUN and creatinine of 13 and 0.87 and a calcium of 8.7 and a magnesium of 1.9, glucose of 86. IMAGING DATA: His chest x-ray shows a small apical airspace on the right side. There are no infiltrates. Costophrenic angles are sharp. There are no air fluid levels. IMPRESSION: 1. Spontaneous pneumothorax. 2. Hemothorax. 3. Distal emphysematous blood disease. 4. Probable vascularized adhesions causing the hemothorax. PLAN AND DISCUSSION: I see no reason why he cannot go home today. I have spoken to the hospitalist and they will discharge him. I have removed his dressing. He may shower. I will see him back next week with a follow-up chest x-ray and post-hospitalization follow-up. He is also on iron.
--- NOTE | 2021-04-03 12:41 | DS.PDOC ---
Discharge Summary General Date of Admission Mar 30, 2021 at 17:26 Date of Discharge 04/03/2021 Discharge Summary PROCEDURES PERFORMED DURING STAY: Chest tube placement on 03/30/[address] Abbott ADMITTING DIAGNOSES / DISCHARGE DIAGNOSES: s/p R sided chest pain - likely 2/2 pneumothorax s/p Hemothorax - possibly 2/2 vascularized adhesion s/p Syncope - likely 2/2 orthostatic hypotension - likely 2/2 volume loss Normocytic anemia / Acute blood loss anemia s/p Leukocytosis - likely 2/2 reactive etiology DVT prophylaxis COMPLICATIONS/CHIEF COMPLAINT: Chest pain / SOB HISTORY OF PRESENT ILLNESS: Patient is a 25-year-old male with no significant PMHx who presented to the ER after he has passed out while at work. To emergency room, patient was noted to have a large right-sided pneumothorax. He was admitted to hospital service for further evaluation and treatment. Cardiac thoracic surgery was called on consultation and a chest tube was placed. Of note, there was a significant amount of blood was draining through the chest tube. Patient was seen and examined at the bedside. Patient denies any chest pain, shortness breath or palpitations. He has not experience any nausea, vomiting, abdominal pain or any diarrhea. Denies any urinary discomfort. Patient reports that he did have a bowel movement this morning. Reports green but not dark colored anymore. Later on he was seen ambulating the hallways without any distress. HOSPITAL COURSE: s/p R sided chest pain - likely 2/2 pneumothorax - Patient presented to the ER with right-sided chest pain on 03/30 - This morning patient is comfortable. He denies any shortness of breath or chest pain and has been ambulating the hallways without any difficulties - Imaging noted above - s/p Chest tube placement on 03/[address] Abbott; was removed on 04/02 - Cardiothoracic surgery on consultation; - Will have outpatient follow-up with cardiothoracic surgery and PCP within the next 7 days - Patient has been advised to avoid any heavy lifting or strenuous activity over the next 6 weeks s/p Hemothorax - possibly 2/2 vascularized adhesion - s/p Removal of 1.5 L of blood s/p Syncope - likely 2/2 orthostatic hypotension - likely 2/2 volume loss - On 03/31 patient had a syncopal episode and was noted to be significantly tachycardic upon ambulation - Orthostatic vital signs are negative - H&H stable - c/w Telemetry monitoring - s/p IV fluid hydration - Cleared PT Normocytic anemia / Acute blood loss anemia - Hg has remained stable - No indications for transfusions - c/w Protonix; Will DC Ketorolac - c/w Ferrous sulfate s/p Leukocytosis - likely 2/2 reactive etiology - No evidence of infection at this point - Has not required any antibiotics DVT prophylaxis - s/p Heparin - c/w TEDs/Sequentials DISCHARGE MEDICATIONS: Please see below. ALLERGIES: Please see below. PHYSICAL EXAMINATION ON DISCHARGE: Vitals (See below) General: Patient sitting up in bed, appears to be comfortable without any acute distress, is awake, alert and oriented to person, place and time HEENT: Atraumatic and normocephalic CVS: +S1S2 Lungs: There appears to be fair air entry bilaterally without any auscultated evidence of rhonchi, crackles or wheezing Abdomen: Soft without any distention or tenderness noted Extremities: Lower extremities are without any edema LABORATORY DATA: Please see below. IMAGING: CXR 03/30: Right-sided pneumothorax and right lung base opacities atelectasis/pne umonia/effusion. If an effusion then hydropneumothorax. CXR 03/30: There is a right hydropneumothorax with right chest tube in place from an anterior approach tip at right lung apex. There is consolidation the right lower lobe which may be due to compressive atelectasis among other etiologies. CXR 03/31: 1. No obvious right pneumothorax. 2. Right lower lobe airspace disease and small pleural fluid improved from prior examination. 3. No new acute process. CXR 04/01: Right apical chest tube with small amount of residual basilar pleural fluid. No residual pneumothorax. CXR 04/02: 1. Small amount of residual pleural fluid at the right base decreased. 2. No pneumothorax. CXR 04/03: 1. Right chest tube removal with subsequent small right apical pneumothorax. ACTIVITY: [As tolerated]. DISCHARGE PLAN: Follow-up with primary care provider within the next 7 days Follow-up with cardiothoracic surgery within the next 7 days Remain compliant with treatment plan and medications Return to the ER if you experience any problems DISPOSITION: Home DISCHARGE CONDITION: [Stable]. TIME SPENT ON DISCHARGE: 35 minutes. Vital Signs/I&Os Vital Signs Date Time Temp Pulse Resp B/P (MAP) Pulse Ox O2 Delivery O2 Flow Rate FiO2 04/03/21 07:52 98.6 76 18 132/73 (92) 100 Room Air 03/31/21 09:00 2.0 I&O- Last 24 Hours up to 6 AM 04/03/21 06:00 Intake Total 1080 ml Output Total 0 ml Balance 1080 ml Laboratory Data Labs 24H Laboratory Tests 2 04/03/21 04:38: Immature Granulocyte % (Auto) 0.3, Neutrophils (%) (Auto) 61.0, Lymphocytes (%) (Auto) 24.2, Monocytes (%) (Auto) 10.1H, Eosinophils (%) (Auto) 3.6H, Basophils (%) (Auto) 0.8, Neutrophils # (Auto) 3.9, Lymphocytes # (Auto) 1.5, Monocytes # (Auto) 0.6, Eosinophils # (Auto) 0.2, Basophils # (Auto) 0.1, Nucleated Red Blood Cells % (auto) 0.0, Anion Gap 6L, Glomerular Filtration Rate > 60.0, Calcium Level 8.7, Magnesium Level 1.9 CBC/BMP Laboratory Tests 04/02/21 18:31 04/03/21 04:38 Discharge Medications Scheduled Ferrous Sulfate (Ferrous Sulfate) 325 Mg Tablet, 325 MG PO DAILY Allergies Coded Allergies: No Known Drug Allergies (Verified Allergy, Unknown, 03/30/21) GALA OSWALD MD Apr 03, 2021 12:41
== END 2021-04-03 13:04 | disposition home or self-care (01) | DRG 188 ==
LOC: EDBD 16:12 → M ED 16:12 → M ED INP 17:26 → M PCU 17:47
PROVIDERS: ADMIT Internal Medicine; ATTEND Internal Medicine
PROC: 0W9G30Z Drainage of Peritoneal Cavity with Drainage Device, Percutaneous Approach (ICD-10-PCS; principal; 2021-03-30)
DX: J94.2 Hemothorax (principal); D64.9 Anemia, unspecified; I95.1 Orthostatic hypotension; Z91.82 Personal history of military deployment; J43.9 Emphysema, unspecified

== ENCOUNTER → 2021-04-11 | Outpatient (CLI) | payer OTHER ==
[~2021-04-11] MED LIST: FERR1TAB8 PO
[2021-04-11 13:32] LABS: HEMATOCRIT 36.6 % (42.0-52.0); HEMOGLOBIN 12.2 g/dl (13.5-17.5)
== END ==
LOC: M PLALAB 11:01
PROVIDERS: ATTEND Thoracic Surgery (Cardiothoracic Vascular Surgery)
DX: D64.9 Anemia, unspecified (principal)

== ENCOUNTER → 2021-04-11 | Outpatient (CLI) | payer OTHER | LOC: M PLAIMG 09:51 | PROVIDERS: ATTEND Thoracic Surgery (Cardiothoracic Vascular Surgery) | DX: J90 Pleural effusion, not elsewhere classified (principal); J93.11 Primary spontaneous pneumothorax; D64.9 Anemia, unspecified ==

== ENCOUNTER 2021-06-12 21:38 | Emergency (ER) | payer OTHER ==
[~2021-06-12] VITALS: Ht 185.4 cm; Wt 76.2 kg
[2021-06-12 21:39] VITALS: BP 143/87
[2021-06-13 00:26] LABS: BASO # 0.1 10^3/uL (0.0-0.2); BASO % 1.1 % (0.0-1.0); EOS # 0.3 10^3/uL (0.0-0.5); EOS % 4.7 % (0.0-3.0); HEMATOCRIT 45.6 % (42.0-52.0); HEMOGLOBIN 15.2 g/dl (13.5-17.5); LYMPH # 3.2 10^3/uL (1.5-5.0); LYMPH % 49.1 % (24.0-44.0); MEAN CORPUSCULAR HEMOGLOBIN 29.1 pg (27.0-33.0); MEAN CORPUSCULAR HGB CONC 33.3 g/dl (32.0-36.5); MEAN CORPUSCULAR VOLUME 87.4 fl (80.0-96.0); MONO # 0.5 10^3/uL (0.0-0.8); MONO % 7.3 % (2.0-8.0); NEUTROPHILS # 2.4 10^3/uL (1.5-8.5); NEUTROPHILS % 37.6 % (36.0-66.0); PLATELET COUNT, AUTOMATED 228 10^3/uL (150-450); RED BLOOD COUNT 5.22 10^6/uL (4.30-6.10); WHITE BLOOD COUNT 6.4 10^3/uL (4.0-10.0)
[2021-06-13 00:38] LABS: INR 1.06; PARTIAL THROMBOPLASTIN TIME 29.1 SECONDS (25.9-37.0); PROTHROMBIN TIME 14.2 SECONDS (12.7-14.5)
[2021-06-13 00:43] LABS: D-DIMER QUANT < 270 ng/ml (<500)
[2021-06-13 00:51] LABS: CK-MB VALUE MASS 1.6 NG/ML (<3.6); MB/CK RELATIVE INDEX 1.03 (< OR =4)
[2021-06-13 00:55] LABS: ALBUMIN 4.1 GM/DL (3.2-5.2); ALT/SGPT 21 U/L (12-78); BILIRUBIN,DIRECT < 0.1 MG/DL (0.0-0.2); BILIRUBIN,TOTAL 0.2 MG/DL (0.2-1.0); BLOOD UREA NITROGEN 12 MG/DL (7-18); CALCIUM LEVEL 9.2 MG/DL (8.5-10.1); CARBON DIOXIDE LEVEL 29 MEQ/L (21-32); CHLORIDE LEVEL 109 MEQ/L (98-107); GLOMERULAR FILTRATION RATE > 60.0 (>60); GLUCOSE, FASTING 82 MG/DL (70-100); LIPASE 115 U/L (73-393); POTASSIUM SERUM 3.9 MEQ/L (3.5-5.1); SODIUM LEVEL 143 MEQ/L (136-145); TOTAL PROTEIN 6.9 GM/DL (6.4-8.2)
[2021-06-13] MEDS ORDERED: ISOVUE-370 76% 100ML VIAL As Ordered ONE (00:59)
== END 2021-06-13 01:49 | disposition home or self-care (01) ==
LOC: M ED 21:38
DX: R07.9 Chest pain, unspecified (principal); Z87.09 Personal history of other diseases of the respiratory system
CPT/HCPCS: 36415; 71046; 71260; 80048; 80076; 82550; 82553; 83690; 84484; 85025; 85379; 85610; 85730; 93005; 99284; Q9967

== ENCOUNTER → 2024-09-29 | Outpatient (CLI) | payer BC, OTHER | LOC: M WUC 12:14 | PROVIDERS: ATTEND Internal Medicine | DX: R22.33 Localized swelling, mass and lump, upper limb, bilateral (principal) ==

== ENCOUNTER → 2025-04-13 | Outpatient (CLI) | payer BC ==
[2025-04-13 17:15] LABS: AMORPHOUS SEDIMENT SMALL (NEGATIVE); APPEARANCE, URINE HAZY (CLEAR); BACTERIA, URINE AUTO NEGATIVE (NEGATIVE); BILIRUBIN, URINE AUTO NEGATIVE (NEGATIVE); BLOOD, URINE BLOOD NEGATIVE (NEGATIVE); GLUCOSE, URINE (UA) AUTO NEGATIVE (NEGATIVE); KETONE, URINE AUTO NEGATIVE (NEGATIVE); LEUKOCYTE ESTERASE, URINE AUTO NEGATIVE (NEGATIVE); MUCUS, URINE SMALL (NEGATIVE); NITRITE, URINE AUTO NEGATIVE (NEGATIVE); PROTEIN, URINE AUTO NEGATIVE (NEGATIVE); RBC, URINE AUTO 1 /HPF (0-3); SPECIFIC GRAVITY URINE AUTO 1.019 (1.002-1.035); SQUAMOUS EPITHELIAL CELL UR AU 0 /HPF (0-6); UROBILINOGEN, URINE AUTO 0.2 mg/dL (0.0-2.0); WBC, URINE AUTO 0 /HPF (0-3)
[2025-04-13 18:44] LABS: GC DNA AMPLIFICATION NEGATIVE (NEGATIVE)
== END ==
LOC: M RAD 16:04
PROVIDERS: ATTEND Internal Medicine
DX: N50.812 Left testicular pain (principal); I86.1 Scrotal varices; N50.3 Cyst of epididymis